=== PATIENT | female | born 1960 | race Caucasian/White ===

== ENCOUNTER → 2023-09-27 13:38 | Outpatient (REF) | payer OTHER, SELFPAY | LOC: WDC 13:38 | PROVIDERS: ATTENDING PHYSICIAN Surgery; FAMILY PHYSICIAN Emergency Medicine; REFERRING PHYSICIAN Nurse Practitioner Family | DX: Z12.31 Encounter for screening mammogram for malignant neoplasm of breast (principal); R92.8 Other abnormal and inconclusive findings on diagnostic imaging of breast | CPT/HCPCS: 76642; 77063; 77067 ==

== ENCOUNTER 2023-10-02 09:37 | Emergency (ER) | payer OTHER, SELFPAY ==
[2023-10-02 09:38] VITALS: BP 142/72
--- NOTE | 2023-10-02 09:44 | ED.CVA ---
History of Present Illness
<Tatiana López PA-C - Last Filed: 10/02/23 11:23>
General
Chief Complaint: CVA/TIA Symptoms
Source: patient and records
Exam Limitations: none
Time Seen by Provider: 10/02/23 09:43
Nursing documentation reviewed up to this point in time: agreed with
Onset of Stroke Symptoms
Onset of symptoms known: Yes
Date of onset of symptoms: 10/01/23
Travel History
Have you had any contact with someone who has COVID-19?: No
Do you have any symptoms of coronavirus? Fever > 100 degrees, chills, cough, shortness of breath, sore throat, loss of taste or smell, muscle aches, or headache?: No
History of Present Illness
History of Present Illness:
63 y/o female with a past medical history of thrombocytopenia, TIA, hyperlipidemia presenting emergency department concerns of lip numbness that started yesterday. Patient called her primary provider today who advised her to return to the emergency
department. Patient is unsure what time of the day the symptoms started yesterday, as she was distracted working from home. Patient also started with a frontal headache today. Patient also has left arm discomfort that started today, she states
she has not feels weak but she states that is a bit sore feeling. Patient has a previous TIA in which she had speech difficulties and a left facial droop. Patient denies chest pain, shortness of breath, dizziness, visual changes.
Past History
<Tatiana López PA-C - Last Filed: 10/02/23 11:23>
Past History
ED Past Medical History: Other (PFO repair)
ED Past Surgical History: Cardiac (PFO repair) and Other
Social History
Tobacco: Non-smoker
Alcohol: None
Drug: None
Personal:
Living: with family
Employment: Employed
Family History
Family History: Other (Noncontributory)
Review of Systems
<Tatiana López PA-C - Last Filed: 10/02/23 11:23>
Review of Systems
All Other Systems: ROS reviewed and negative except as documented in HPI and ROS
Phy Exam
<Tatiana López PA-C - Last Filed: 10/02/23 11:23>
Physical Exam
Physical Exam:
Vitals: Patient is vital signs are stable
General: Patient is well-appearing, no acute distress
Skin: Warm and dry, no rashes or lesions
Head: Normocephalic, atraumatic
Eyes: Sclera nonicteric
Cardiac: Regular rate rhythm, no murmurs
Pulm: Normal respiratory effort
Musculoskeletal: No pain with passive range of motion of left upper extremity, no bony tenderness palpation left upper extremity.
Neuro: AAOx3. CN II-XII intact. No focal neurologic deficits. GCS 15. Yyxond-xu-pqax testing, molw-jo-jzeb testing intact.
Psychiatric: Anxious affect.
NIH Stroke Score
Level of Consciousness: 0 - Alert
LOC questions: 0-Answers both correctly
LOC Commands: 0-Performs both correctly
Best Gaze: 0-Normal
Visual [place]: 0=Normal, no visual loss
Facial palsy: 0=Normal, symmetrical
Motor - Right Arm: 0=No drift 10 seconds
Motor - Left Arm: 0=No drift 10 seconds
Motor - Right Le-No drift 5 seconds
Motor - Left Le-No drift 5 seconds
Limb Ataxia: 0-Absent
Sensation: 0-Normal
Best Language: 0-No aphasia
Dysarthria: 0-Normal
Extinction and Inattention: 0-No abnormality
Total Score:: 0
Course
<Tatiana López PA-C - Last Filed: 10/02/23 11:23>
Orders/Labs/Results
Orders:
Orders
10/02/23 09:44
EKG [Electrocardiogram (*1)] Urgent
Reason for Study: Fatigue / Weakness
CT Head W/o Iv Contrast Urgent
Comment:
Reason For Exam: cva symptoms starting yesterday
EKG- Treatment ONCE
10/02/23 09:53
Basic Metabolic Panel Urgent
Complete Blood Count/With Diff Urgent
Prothrombin Time Urgent
Troponin I Urgent
Abnormal Lab Results
10/02/23
09:53
Plt Count 443 H 10^3/uL
(130-400)
Absolute Lymphs (auto) 1.0 L 10^3/uL
(1.2-3.4)
Lymphocytes % 16.2 L %
(20.5-51.1)
Sodium 134 L mmol/L
(135-145)
BUN 21 H mg/dl
(7-17)
Glucose 122 H mg/dl
(70-99)
10/02/23 09:53
10/02/23 09:53
Vital Signs
Initial and Last Documented VS:
Initial Vital Signs
Temp Pulse Resp BP Pulse Ox
97.8 F 76 16 142/72 100
10/02/23 09:38 10/02/23 09:38 10/02/23 09:38 10/02/23 09:38 10/02/23 09:38
Last Documented Vital Signs
Temp Pulse Resp BP Pulse Ox
97.8 F 71 16 121/78 100
10/02/23 09:38 10/02/23 10:00 10/02/23 09:38 10/02/23 10:00 10/02/23 10:00
Clarissalt;Derick Garzon DO - Last Filed: 10/02/23 11:07>
Orders/Labs/Results
Orders:
Orders
10/02/23 09:44
EKG [Electrocardiogram (*1)] Urgent
Reason for Study: Fatigue / Weakness
CT Head W/o Iv Contrast Urgent
Comment:
Reason For Exam: cva symptoms starting yesterday
EKG- Treatment ONCE
10/02/23 09:53
Basic Metabolic Panel Urgent
Complete Blood Count/With Diff Urgent
Prothrombin Time Urgent
Troponin I Urgent
Abnormal Lab Results
10/02/23
09:53
Plt Count 443 H 10^3/uL
(130-400)
Absolute Lymphs (auto) 1.0 L 10^3/uL
(1.2-3.4)
Lymphocytes % 16.2 L %
(20.5-51.1)
Sodium 134 L mmol/L
(135-145)
BUN 21 H mg/dl
(7-17)
Glucose 122 H mg/dl
(70-99)
10/02/23 09:53
10/02/23 09:53
Vital Signs
Initial and Last Documented VS:
Initial Vital Signs
Temp Pulse Resp BP Pulse Ox
97.8 F 76 16 142/72 100
10/02/23 09:38 10/02/23 09:38 10/02/23 09:38 10/02/23 09:38 10/02/23 09:38
Last Documented Vital Signs
Temp Pulse Resp BP Pulse Ox
97.8 F 71 16 121/78 100
10/02/23 09:38 10/02/23 10:00 10/02/23 09:38 10/02/23 10:00 10/02/23 10:00
Clarissalt;Tatiana López PA-C - Last Filed: 10/02/23 11:23>
MDM/Problems Addressed
Differential Diagnosis Includes:
Differentials include electrolyte derangement, CVA, TIA, functional neurological disorder, tension headache, cluster headache
MDM/Problems Addressed:
headache
lip numbness
Chronic conditions affecting care:
transient ischemic attack, hypercholesterolemia
<Tatiana López PA-C - Last Filed: 10/02/23 11:23>
*Radiology
Radiology exam reviewed: preliminary read by ED provider (head CT--no acute intracranial abnormality )
*Pulse Oximetry
Patient hypoxic: no
*EKG
Interpreted by ED Provider?: Yes
EKG Intrepretation Date: 10/02/23
Interpretation: normal
Comparison EKG: no changes
Heart Rate: 73
Rate: normal
Rhythm: sinus
[place]: normal axis
Interval: normal interval, normal QT interval and normal [place] interval
QRS Pattern: normal QRS
Ischemia: no ischemia
*Critical Care Note
Total Time (30-74mins, 75-104mins- exclusive of procedures): Not Applicable
Data Reviewed
Review of Other/Old Records Reveals: Records (reviewed ER physician documentation from 03/19/2022) and Discharge Summary (discharged summary reviewed from 10/31/18)
Source: patient and records
Prescriptions/Medications Considered But Not Given:
considered medication for pain for headache but patient states that she is comfortable at this time
<KHANH Dillard Last Filed: 10/02/23 11:23>
Patient Management
Escalation/DeEscalation of care consider admission/obs:
63 y/o female with a past medical history of thrombocytopenia, TIA, hyperlipidemia presenting emergency department concerns of lip numbness that started yesterday. The lip numbness is felt all across and is not unilateral. Her CT here in the
emergency department did not show any acute intracranial abnormalities. Her CBC and CMP are unremarkable. Her EKG demonstrates normal sinus rhythm with no ischemic changes. Patient is stable for discharge.
ED Attending Note
<Tatiana López PA-C - Last Filed: 10/02/23 11:23>
-
Portions of this chart may have been created with voice recognition software.� Occasional wrong word or��sound alike� substitutions may have occurred due to the inherent limitations of voice recognition software.
<Derick Garzon, - Last Filed: 10/02/23 11:07>
ED Attending Note
Patient seen and examined by attending physician: Yes
I performed the substantive portion of visit, reviewed & personally made and approve the management plan that is documented in note by myself or ANJALI.: Yes
ED Attending Note:
Patient presents complaining of numbness primarily around her lips. No other focal weakness or numbness. Patient complaining of frontal headache. No nausea or vomiting.
General: Awake, Alert, Oriented X3. No acute distress.
Vitals: unremarkable
Head: Atraumatic
Eyes: Pupils equal, EOMI
Throat: Airway intact, no exudates
Neck: Trachea midline
Neuro: Cranial nerves intact, muscle strength equal bilaterally, cerebellar exam normal
Skin: Warm, dry, no rash
Extremities: pulses equal b/l, no edema
Given symptoms are bilateral my suspicion for an ischemic event is extremely low. Consideration given to electrolyte abnormalities however labs show these are normal. Potassium was not resulted due to hemolysis but I do not believe the symptoms
would be related to hypo or hyperkalemia and being in isolation. EKG shows no acute abnormalities. Patient stable for discharge and outpatient follow-up
Discharge Plan
Departure
Patient Disposition: Home (Routine Discharge)
Date of Disposition: 10/02/23
Time of Disposition: 10:57
Patient with high blood pressure during this ER visit?: Yes
Condition: Good
Discharge Problem:
Lip numbness, Headache
Instructions: Headache, Adult, Paresthesia (DC), BLOOD PRESSURE
Prescriptions:
No Action
aspirin 81 MG tablet,chewable
81 mg PO DAILY 0RF
atorvastatin 40 MG tablet
40 mg PO HS
multivitamin Tablet
1 tab PO DAILY
calcium carbonate-vitamin D3 [Calcium + D] 600 mg-5 mcg (200 unit) Tablet
1 tab PO DAILY
Referrals:
La Lopez MD [Family Provider] -
Activity Restrictions/Additional Instructions:
Please schedule a follow up appointment with your primary care provider.
Please continue taking your aspirin and atorvastatin.
Please return to the emergency department SHOULD YOU EXPERIENCE CONFUSION, WEAKNESS, FACIAL DROOPING, SPEECH DIFFICULTIES, CHANGES IN YOUR VISION, DIZZINESS, CHEST PAIN, SHORTNESS OF BREATH, OR OTHER CONCERNING SIGNS OR SYMPTOMS.
Interventions
Interventions:
*Risk Screen - Suicide Last Done: 10/02/23 09:57
*General Assessment Last Done: 10/02/23 09:57
*Neglect/Abuse Screening Last Done: 10/02/23 09:57
*ED COVID-19 Vaccine History Last Done: 10/02/23 09:38
*Nursing Disposition Last Done: 10/02/23 11:05
ED- Pulmonary Assessment Last Done: 10/02/23 09:51
ED- Neurological Assessment Last Done: 10/02/23 09:51
ED- Cardiac Assessment Last Done: 10/02/23 09:51
ED Swallowing Screen Last Done: 10/02/23 09:51
Discharge Date and Time
Discharge Date/Time: 10/02/23 11:05
Print Language: LATVIAN
[2023-10-02 10:00] VITALS: BP 121/78
[2023-10-02 10:18] LABS: % Eosinophils 0.5 % (0-6); % Immature Granulocytes 0.3 % (0-0.5); % Lymphocytes 16.2 % (20.5-51.1); % Monocytes 6.8 % (1.7-9.3); % Neutrophils 75.2 % (42.2-75.2); Absolute Basophils 0.1 10^3/uL (0-0.2); Absolute Monocytes 0.4 10^3/uL (0.1-0.6); Absolute Neutrophils 4.7 10^3/uL (1.4-6.5); Hematocrit 40.1 % (37.0-47.0); Hemoglobin 13.6 g/dL (12.0-16.0); Mean Corp Hgb Conc. 33.9 g/dL (33.0-37.0); Mean Corpuscular Hgb 30.9 pg (27.0-31.0); Mean Corpuscular Volume 91.1 fL (81.0-99.0); Mean Platelet Volume 9.3 fL (7.4-10.4); Nucleated Red Blood Cells % 0 %; Platelet Count 443 10^3/uL (130-400); Red Cell Dist. Width 12.9 % (11.5-14.5); White Blood Cell Count 6.3 10^3/uL (4.8-10.8)
[2023-10-02 10:28] LABS: INR 1.06; PT 13.8 Sec (11.4-14.6)
[2023-10-02 10:42] LABS: Troponin I < 0.012 ng/ml
[2023-10-02 10:44] LABS: Blood Urea Nitrogen 21 mg/dl (7-17); Calcium 9.7 mg/dl (8.4-10.2); Carbon Dioxide 29 mmol/L (22-30); Chloride 100 mmol/L (98-107); Glucose 122 mg/dl (70-99); Sodium 134 mmol/L (135-145); eGFR > 60.00
== END 2023-10-02 11:05 | disposition home or self-care (01) ==
LOC: EMR 09:37
PROVIDERS: Physician Assistant; EMERGENCY PHYSICIAN Emergency Medicine; FAMILY PHYSICIAN Emergency Medicine
DX: R20.0 Anesthesia of skin (principal); R51.9 Headache, unspecified; E78.00 Pure hypercholesterolemia, unspecified; Z86.73 Personal history of transient ischemic attack (TIA), and cerebral infarction without residual deficits; R03.0 Elevated blood-pressure reading, without diagnosis of hypertension
CPT/HCPCS: 99285; 70450; 80048; 84484; 85025; 85610; 93005

== ENCOUNTER → 2024-05-29 14:37 | Outpatient (REF) | payer OTHER, SELFPAY | LOC: WDC 14:37 | PROVIDERS: ATTENDING PHYSICIAN Surgery; FAMILY PHYSICIAN Emergency Medicine | DX: R92.30 Dense breasts, unspecified (principal); R92.8 Other abnormal and inconclusive findings on diagnostic imaging of breast | CPT/HCPCS: 76641 ==

== ENCOUNTER 2024-07-13 19:02 | Outpatient (RCR) | payer OTHER, SELFPAY | END 2024-07-13 23:59 | disposition home or self-care (01) | LOC: RPT 19:02 | PROVIDERS: ATTENDING PHYSICIAN Emergency Medicine | DX: R42 Dizziness and giddiness (principal); Z73.6 Limitation of activities due to disability; R26.2 Difficulty in walking, not elsewhere classified | CPT/HCPCS: 97112; 97163 ==

== ENCOUNTER 2024-10-07 11:21 | Outpatient (RCR) | payer OTHER, SELFPAY | END 2024-10-07 23:59 | disposition home or self-care (01) | LOC: RPT 11:21 | PROVIDERS: ATTENDING PHYSICIAN Emergency Medicine | DX: H81.12 Benign paroxysmal vertigo, left ear (principal); Z73.6 Limitation of activities due to disability | CPT/HCPCS: 97112; 97162 ==

== ENCOUNTER → 2024-12-08 19:01 | Outpatient (REF) | payer OTHER, SELFPAY | LOC: WDC 19:01 | PROVIDERS: ATTENDING PHYSICIAN Emergency Medicine | DX: Z12.31 Encounter for screening mammogram for malignant neoplasm of breast (principal) | CPT/HCPCS: 77063; 77067 ==

== ENCOUNTER → 2024-12-17 13:22 | Outpatient (REF) | payer OTHER, SELFPAY | LOC: RAD 13:22 | PROVIDERS: ATTENDING PHYSICIAN Emergency Medicine | DX: M81.0 Age-related osteoporosis without current pathological fracture (principal) | CPT/HCPCS: 77080 ==

== ENCOUNTER → 2025-04-09 17:49 | Outpatient (REF) | payer OTHER, SELFPAY | LOC: RAD 17:49 | PROVIDERS: ATTENDING PHYSICIAN Internal Medicine Rheumatology; FAMILY PHYSICIAN Emergency Medicine | DX: M54.9 Dorsalgia, unspecified (principal); M81.0 Age-related osteoporosis without current pathological fracture | CPT/HCPCS: 72070; 72100 ==